=== PATIENT | male | born 1985 | race Caucasian/White ===

== ENCOUNTER 2020-08-15 12:10 | Day surgery (SDC) | payer OTHER, SELFPAY ==
--- NOTE | 2020-08-15 12:06 | HO.ANESPROP2 ---
HPI - Anesthesia Eval Consult details Narrative: 34 yo male patient here for upper endoscopy with balloon dilatation. PMF Past Medical History Medical History (Updated 08/15/20 @ 12:39 by Sara Nguyen) Esophageal stricture Family History Family history of problems with anesthesia: No Surgical History Surgical History (Updated 08/15/20 @ 12:38 by Sara Nguyen) Esophageal stricture H/O clavicle fracture History of Problems with Anesthesia: No Social History Social History Smoking Status: Never smoker Use of substances other than those prescribed or required for medical reasons: No Advance Directives: No Advance Directives Information Provided: Yes Recently lost weight without trying: No Meds Allergies Allergy/AdvReac Type Severity Reaction Status Date / Time No Known Allergies Allergy Unverified 04/07/20 16:44 Exam Exam Date and Time: August 15, 2020 1206 Height,Weight and Vital Signs: Ht 5' 8 Wt 95.45kg Vital Signs Temp Pulse Resp BP Pulse Ox 08/15/20 12:09 98.6 F 81 18 144/91 H 96 Airway Mallampati Class: II TM Dist: >3cm Neck ROM: Full Loose/Missing/Broken Teeth: Yes (top right) Heart: RRR Lungs: CTAB Assessment and Plan Assessment Anesthesia Assessment: Anesthesia Plan Discussed and Chart Reviewed Final Anesthetic Review NPO: Yes ASA Class: II Final Preanesthetic Review: No Changes in Pt Med Stat, Meds/Allgs Chart Reviewed, Consent Obtained/Reviewed and Anes Risks/Benef Reviewed Patient Risk: Low Procedure Risk: Low Assessment/Block/Sedation in SS: Assess/Block/Sedation-SS Anesthetic Plan Anesthetic Plan: MAC: Disposition: Standard PACU
[2020-08-15 12:09] VITALS: BP 144/91; PULSE 81; RESP 18; TEMP 37; O2SAT 96; BMI 32.0
[2020-08-15] MEDS: Lactated Ringers 1,000 ML 100 ML IVCONT (12:32)
[2020-08-15 13:00] VITALS: BP 112/71; PULSE 97; RESP 12; TEMP 36.4; O2SAT 96
--- NOTE | 2020-08-15 13:02 | PM.OP ---
Brief Operative Note Date of Service: 08/15/20 Pre-op diagnosis: Dysphagia Post-op diagnosis: other (Esophageal stricture, Hiatal hernia, Reflux esophagitis) Procedure: EGD with Balloon dilation from 18 to 19 to 20mm balloon, and biopsies Surgeon: Wilfrido García Anesthesia: MAC Estimated blood loss (mL): 3.0 Pathology: other (A. Esophagus at 32cm) Condition: stable Disposition: PACU
[2020-08-15 13:15] VITALS: BP 110/76; PULSE 78; RESP 18; O2SAT 98
--- NOTE | 2020-08-15 13:30 | OP_ITS ---
SURGEON: Wilfrido García MD INDICATIONS: The patient presents for evaluation of recurrent dysphagia. Full consent has been obtained from him for this, including risks of bleeding and perforation. PREOPERATIVE DIAGNOSIS: Dysphagia. POSTOPERATIVE DIAGNOSIS: PROCEDURE PERFORMED: Esophagogastroduodenoscopy with balloon dilation of distal esophageal stricture, and biopsies. ESTIMATED BLOOD LOSS: COMPLICATIONS: ANESTHESIA: Monitored anesthesia care. ASSISTANTS: SPECIMENS: POSTOPERATIVE DIAGNOSES: Dysphagia, distal esophageal stricture, hiatal hernia, reflux esophagitis. DESCRIPTION OF PROCEDURE: The patient was placed in the left lateral decubitus position. The Olympus video gastroscope was passed in the posterior oropharynx and upper esophagus under direct vision. The scope was passed slowly into the distal esophagus. The gastroesophageal junction appeared at between 34 and 35 cm. With insufflation of air, I did visualize what I felt was a fibrotic esophageal stricture. The distal several centimeters of the esophagus had some overlying punctate erosions, but no ulceration, Diaz's mucosa, nor mass. The scope entered into the stomach easily. There was a moderate-sized hiatal hernia. The hiatal hernia mucosa appeared normal. The scope was advanced to pylorus and duodenum cannulated to the descending portion. The duodenum including the bulb appeared normal without mass or ulceration. The scope was withdrawn back into the stomach. The gastric antrum and body appeared normal with good peristalsis. Scope was retroflexed visualizing the proximal stomach carefully, which appeared normal, without any sign of mass or ulceration. The scope was straightened and withdrawn back into the esophagus. Given the symptomatology and these findings, I did use a [employer] incremental balloon to dilate the gastroesophageal junction and fibrotic appearing stricture with an 18 mm to a 19 mm to a 20 mm balloon at the recommended pressures for between 30 and 60 seconds each. Post dilation, there did appear to be heme noted and some disruption of the stricture. I did obtain biopsies between 32 and 34 cm. Proximal to this, the esophageal mucosa appeared normal. The scope was withdrawn from the patient. He tolerated the procedure well and was returned to the recovery area in stable condition. IMPRESSION: 1. Distal fibrotic esophageal stricture. 2. Hiatal hernia. 3. Reflux esophagitis. PLAN: The results of the biopsies will be checked. He will continue omeprazole 40 mg b.i.d. He was advised to avoid all aspirin and NSAIDs. Depending upon his clinical course, may need further evaluation with esophageal motility studies, barium swallow with a barium tablet, and consideration for reflux surgery. He was advised not to use any aspirin and NSAIDs for at least 1 week. This has been discussed with his . He will be seen in 2 months for a followup visit, but was advised to call sooner if need be. MD YONATAN Seay/GUANAKITO / [phone]
--- NOTE | 2020-08-15 13:31 | HO.POSTANES ---
Post Anesthesia Evaluation Post Anesthesia Evaluation Vital Signs: Vital Signs Temp Pulse Resp BP Pulse Ox 08/15/20 13:15 97.5 F 78 18 110/76 98 08/15/20 13:00 97.5 F 97 12 112/71 96 08/15/20 12:09 98.6 F 81 18 144/91 H 96 Anesthesia: Monitored Mental Status: Awake Pain Control: Satisfactory Nausea/Vomiting: None Hydration: Adequate Anesthesia-Related Issues: No Anes. Related Issues
== END 2020-08-15 14:00 | disposition home or self-care (01) ==
PROVIDERS: Visit Provider Internal Medicine
PROC: (CPT 43249; principal; 2020-08-15 12:40)
DX: K22.2 Esophageal obstruction (principal); K20.0 Eosinophilic esophagitis; K44.9 Diaphragmatic hernia without obstruction or gangrene; J45.909 Unspecified asthma, uncomplicated; Z79.899 Other long term (current) drug therapy
CPT/HCPCS: 43249; 43239; 88305; C1726; J2405

== ENCOUNTER 2021-10-20 07:23 | Outpatient (REF) | payer OTHER, SELFPAY ==
--- NOTE | 2021-10-20 | ECG_ITS ---
Test Reason : PREOP Blood Pressure : / mmHG Vent. Rate : 069 BPM Atrial Rate : 069 BPM P-R Int : 166 ms QRS Dur : 088 ms QT Int : 374 ms P-R-T Axes : 046 005 018 degrees QTc Int : 400 ms Normal sinus rhythm Normal ECG When compared with ECG of 10-DEC-2003 04:19, Vent. rate has decreased BY 43 BPM Referred By: Hola Grossman Electronically Signed By:KIESRTEN ROBERTS
[2021-10-20 07:40] LABS: MANUAL DIFF FLAG NO
[2021-10-20 08:01] LABS: Basophils Percent Auto 0.5 % (0-2); Eosinophils Absolute Auto 0.4 X10*3/uL (0.0-0.4); Eosinophils Percent Auto 5.7 % (0-4); Hematocrit 41.2 % (42.0-52.0); Hemoglobin 14.9 g/dl (14.0-18.0); Imm Gran Abs Auto 0.01 X10*3/uL (0.00-0.03); Imm Gran Pct Auto 0.2 % (0.0-0.4); Lymphocytes Absolute Auto 2.3 X10*3/uL (1.2-4.9); Lymphocytes Percent Auto 34.2 % (20-40); Mean Corpuscular HGB Conc 36.2 g/dl (31.0-36.0); Mean Corpuscular Hemoglobin 31.7 pg (27.0-33.0); Mean Corpuscular Volume 87.7 fL (80.0-98.0); Mean Platelet Volume 9.9 fL (9.4-12.4); Monocytes Absolute Auto 0.6 X10*3/uL (0.1-1.2); Neutrophils Absolute Auto 3.4 x10*3/uL (2.0-8.3); Neutrophils Percent Auto 50.4 % (45-73); Platelet Count 194 X10*3/uL (160-400); Red Cell Distribution Width 12.6 % (11.0-16.0); White Blood Count 6.7 X10*3/uL (4.8-10.8)
[2021-10-20 08:04] LABS: INTERNATIONAL NORM RATIO 1.1 (0.9-1.1); Prothrombin Time 12.9 SEC (9.9-13.0)
[2021-10-20 08:07] LABS: Partial Thromboplastin Time 33.8 SEC (24.1-38.0)
[2021-10-20 08:22] LABS: Anion Gap 11 (12-20); Blood Urea Nitrogen 12 mg/dL (9-16); Carbon Dioxide 25 mmol/L (22-29); Chloride 108 mmol/L (96-108); Estimated Glomerular Filt Rate > 60; Glucose Random 89 mg/dL (60-115); Potassium 4.1 mmol/L (3.3-5.1); Sodium 140 mmol/L (135-145)
[2021-10-20 08:42] LABS: HIV AB/AG Nonreactive (Nonreactive); HIV Num 1 0.07 S/CO (0.00-0.99)
[2021-10-20 08:46] LABS: T4 Thyroxine 6.5 ug/dL (4.5-12.0); Thyroid Stimulating Hormone 1.76 uIU/mL (0.32-4.0)
[2021-10-21 07:31] LABS: Triiodothyronine T3 Free 3.5 pg/mL (2.3-4.2)
== END 2021-10-20 07:24 | disposition home or self-care (01) ==
LOC: HO.LAB 07:23
PROVIDERS: PCP Internal Medicine; Visit Provider Surgery Plastic and Reconstructive Surgery
DX: Z01.818 Encounter for other preprocedural examination (principal); Z11.4 Encounter for screening for human immunodeficiency virus [HIV]
CPT/HCPCS: 36415; 80048; 84436; 84443; 84481; 85025; 85610; 85730; 87389; 93005

== ENCOUNTER 2022-11-28 17:35 | Emergency (ER) | payer OTHER, SELFPAY ==
--- NOTE | ~2022-11-28 | XR_ITS ---
EXAMINATION: XR KNEE, RIGHT CLINICAL INFORMATION: Pain and numbness COMPARISON: September 23, 2019 TECHNIQUE: Four views of the right knee. FINDINGS: There is no evidence of acute fracture or dislocation of the right knee. Right knee joint spaces are maintained. No right knee effusion. There is again noted to be a mixed lucent and sclerotic lesion about the medial distal metaphyseal diaphyseal area of the right femur. This is again noted to have a small cortical bump with expansion but without evidence of periosteal reaction or bony destruction. This measures approximately 2.1 x 1.4 cm in size. This may represent an osteoma, and chondroma, or nonossifying fibroma. If patient has pain that improves with aspiration and possibly of osteoid osteoma could be considered. XR/XR knee RT 4V IMPRESSION: No significant right knee abnormality appreciated. Stable distal femoral rim calcified slightly expansile lesion. This has a benign appearance. If patient has pain related to this location which improves on aspirin then consideration of osteoid osteoma in differential diagnosis be included.
[2022-11-28 18:09] VITALS: BP 125/62; PULSE 68; RESP 16; TEMP 37.2; O2SAT 96; BMI 28.9
--- NOTE | 2022-11-28 22:44 | ED.EXTPRO ---
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 Pain is localized to the right knee with no radiation mostly on the lateral aspect of the knee more with standing and walking, patient is walking with a limp. Patient also regularly exercise with lifting weight and squatting exercising. No fever, no chills. Related Data Previous Rx's Medication Instructions Recorded ibuprofen 600 mg tablet 600 mg PO Q8H PRN pain #20 tabs 11/28/22 Allergies Allergy/AdvReac Type Severity Reaction Status Date / Time No Known Allergies Allergy Unverified 11/28/22 18:08 Review of Systems Review of Systems: All other systems are reviewed and are negative Constitutional: Reports as per HPI and Reports no additional constitutional complaints Eyes: Reports as per HPI and Reports no additional eye complaints Reports system reviewed and no additional complaints, except as documented Cardiovascular: Reports as per HPI and Reports no additional cardiovascular complaints Respiratory: Reports as per HPI and Reports no additional respiratory complaints Gastrointestinal: Reports as per HPI and Reports no additional gastrointestinal complaints Genitourinary: Reports no additional female genitourinary complaints Musculoskeletal: Reports no additional musculoskeletal complaints Skin/Breast: Reports system reviewed and no additional complaints, except as docu Psychiatric: Reports no additional psychiatric complaints Endocrine: Reports no additional endocrine complaints Hematologic/Lymphatic: Reports no additional hematologic/lymphatic complaints Allergic/Immunologic: Reports no additional allergic/immunologic complaints Reports system reviewed and no additional complaints, except as documented and Reports Abnormal speech present [facility] Past Medical History Medical History Esophageal stricture Surgical History Esophageal stricture H/O clavicle fracture Social History Social History Advance Directives: No Advance Directives Information Provided: No Physical Exam Vital Signs: Vital Signs: Last Vital Signs Temp 98.9 F 11/28/22 18:09 Pulse 68 11/28/22 18:09 Resp 16 11/28/22 18:09 BP 125/62 11/28/22 18:09 Pulse Ox 96 11/28/22 18:09 O2 Del Method Room Air 11/28/22 18:09 BMI result Body Mass Index 28.9 Vital signs have been reviewed as appeared to be correct. Blood pressure normal. Heart rate normal. Respiration rate normal. Temperature normal. Oxygen saturation normal. Appearance: Alert. Oriented X3. No acute distress. Head: Normal external exam. Normocephalic. Atraumatic. No Ponce signs noted. No raccoon eyes noted Eyes: PERRLA. EOMI. Conjunctiva and sclera normal. Eyelids normal. ENT: TM's Normal. Pharynx normal. Uvula midline. Moist mucous membranes. No trismus noted. No drooling noted. No muffled voice noted. Neck: Normal inspection. Neck supple. FROM. No adenopathy. Thyroid Normal. No meningeal signs. No neck mass noted. CVS: Normal heart rate and rhythm. Heart sound normal. No murmurs noted. Pulses normal throughout. Respiratory: No respiratory distress. Painless inspiration. Breath sounds normal. No wheezes/rales/rhonchi noted. Chest nontender. No accessory muscle usage noted or decreased air movement noted. Abdomen: Soft and nontender. Bowel sounds normal in all 4 quadrants. No distention noted. No organomegaly noted. No visible injury noted. Back: No CVA tenderness. Full range of motion noted. Skin: Skin warm and dry. Normal skin color. Normal skin turgor. No rashes/lesions/lacerations noted. Extremities: Right knee: No deformity, mild tenderness over lateral aspect of the right knee, able to ambulate in the emergency department and bear weight on the right knee. Neuro: Oriented X 3. Cranial nerve exam: II-XII are grossly intact No motor deficit. No sensory deficit. Reflexes normal. Course Course Course Narrative: Right knee sprain: Patient was instructed to avoid standing for long hours, use knee immobilizer, follow up with Orthopedic, use NSAIDs for pain. Medical Decision Making Differential Diagnosis Differential Diagnoses: The differential diagnosis associated with the presentation includes (Knee sprain, fracture, infection.) Independent Interpretation I performed an independent interpretation of an: Plain X-Ray (Right knee:No significant right knee abnormality appreciated. Stable distal femoral rim calcified slightly expansile lesion. This has a benign appearance. If patient has pain related to this location which improves on aspirin then consideration of osteoid osteoma in differential diagnosis be inclu) Radiology Impression Discussion of test interpretation with radiology: I have reviewed the radiologist's reading. Discharge Plan Discharge Clinical Impression: Right knee sprain Patient Disposition: Home, Self-Care Instructions: Knee Sprain (ED) Prescriptions: New ibuprofen 600 mg tablet 600 mg PO Q8H PRN (Reason: pain) Qty: 20 0RF Referrals: Joey Thibodeaux MD [Primary Care Provider] - Paulino Azul MD [Physician] -
== END 2022-11-28 23:03 | disposition home or self-care (01) ==
PROVIDERS: Emergency Provider Emergency Medicine; PCP Internal Medicine
DX: S83.91XA Sprain of unspecified site of right knee, initial encounter (principal); X50.1XXA Overexertion from prolonged static or awkward postures, initial encounter; Y93.89 Activity, other specified; Y92.9 Unspecified place or not applicable; Y99.9 Unspecified external cause status
CPT/HCPCS: 73564; 99282; 99283

== ENCOUNTER 2023-07-29 15:57 | Outpatient (REF) | payer OTHER, SELFPAY ==
[2023-07-29 16:14] LABS: MANUAL DIFF FLAG NO
[2023-07-29 17:04] LABS: Basophils Percent Auto 0.4 % (0-2); Eosinophils Absolute Auto 0.3 X10*3/uL (0.0-0.4); Eosinophils Percent Auto 3.8 % (0-4); Hematocrit 45.3 % (42.0-52.0); Hemoglobin 15.5 g/dl (14.0-18.0); Imm Gran Abs Auto 0.03 X10*3/uL (0.00-0.03); Imm Gran Pct Auto 0.4 % (0.0-0.4); Lymphocytes Absolute Auto 2.1 X10*3/uL (1.2-4.9); Lymphocytes Percent Auto 28.6 % (20-40); Mean Corpuscular HGB Conc 34.2 g/dl (31.0-36.0); Mean Corpuscular Hemoglobin 29.8 pg (27.0-33.0); Mean Corpuscular Volume 87.1 fL (80.0-98.0); Mean Platelet Volume 9.8 fL (9.4-12.4); Monocytes Absolute Auto 0.5 X10*3/uL (0.1-1.2); Neutrophils Absolute Auto 4.4 x10*3/uL (2.0-8.3); Neutrophils Percent Auto 59.8 % (45-73); Platelet Count 231 X10*3/uL (160-400); Red Cell Distribution Width 12.5 % (11.0-16.0); White Blood Count 7.4 X10*3/uL (4.8-10.8)
[2023-07-29 17:38] LABS: Appearance Urine Clear; Color Urine Yellow; Glucose Urine UA Negative (Negative); Leukocyte Esterase Urine Negative (Negative); Nitrite Urine Negative (Negative); Urine Blood Negative (Negative); Urine Ketones Negative (Negative); Urine Protein Negative (Neg-Trace)
[2023-07-29 17:49] LABS: Alanine Aminotransferase 27 U/L (0-40); Albumin Level 4.5 g/dL (3.5-5.0); Alkaline Phosphatase 65 U/L (39-117); Anion Gap 13 (12-20); Aspartate Amino Transferase 20 U/L (5-37); Bilirubin Total 0.5 mg/dL (0.0-1.0); Blood Urea Nitrogen 11 mg/dL (9-16); Calcium 9.7 mg/dL (8.4-10.2); Carbon Dioxide 26 mmol/L (22-29); Chloride 104 mmol/L (96-108); Estimated Glomerular Filt Rate > 60; Glucose Random 81 mg/dL (60-115); Sodium 139 mmol/L (135-145); Total Protein 7.7 g/dL (6.5-8.0)
[2023-07-29 18:05] LABS: Free T4 (Free Thyroxine) 1.08 ng/dL (0.71-1.85); Thyroid Stimulating Hormone 1.09 uIU/mL (0.32-4.0)
[2023-08-04 14:59] LABS: Testosterone, Free 73.5 pg/mL (35.0-155.0); Testosterone, Total 294 ng/dL (250-1100)
== END 2023-07-29 15:58 | disposition home or self-care (01) ==
LOC: HO.LAB 15:57
PROVIDERS: PCP Internal Medicine; Visit Provider Internal Medicine
DX: R63.4 Abnormal weight loss (principal); I10 Essential (primary) hypertension; R35.1 Nocturia; E29.1 Testicular hypofunction
CPT/HCPCS: 36415; 80053; 81003; 84402; 84403; 84439; 84443; 85025; 87086

== ENCOUNTER 2023-09-03 08:25 | Outpatient (REF) | payer OTHER, SELFPAY ==
--- NOTE | ~2023-09-03 | XR_ITS ---
EXAMINATION: XR KNEE AP STANDING, RIGHT KNEE SUNRISE VIEW CLINICAL INFORMATION: Pain and unspecified knee. COMPARISON: 11/28/2022 right knee radiographs. TECHNIQUE: AP bilateral standing view of the bilateral knees as well as a sunrise view of the right knee were obtained. FINDINGS: Left Knee: Mild narrowing of the medial and lateral compartments with minimal marginal osteophytes. Right Knee: Mild narrowing of the medial and lateral compartments with minimal marginal osteophytes. 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
--- NOTE | ~2023-09-03 | XR_ITS ---
EXAMINATION: XR KNEE AP STANDING, RIGHT KNEE SUNRISE VIEW CLINICAL INFORMATION: Pain and unspecified knee. COMPARISON: 11/28/2022 right knee radiographs. TECHNIQUE: AP bilateral standing view of the bilateral knees as well as a sunrise view of the right knee were obtained. FINDINGS: Left Knee: Mild narrowing of the medial and lateral compartments with minimal marginal osteophytes. Right Knee: Mild narrowing of the medial and lateral compartments with minimal marginal osteophytes. 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
== END 2023-09-03 08:26 | disposition home or self-care (01) ==
LOC: HO.HOSX 08:25
PROVIDERS: Visit Provider Physician Assistant
DX: M23.91 Unspecified internal derangement of right knee (principal)
CPT/HCPCS: 73560; 73565; 99202

== ENCOUNTER 2023-09-03 10:39 | Outpatient (AMB) | payer OTHER, SELFPAY ==
[2023-09-03 10:46] VITALS: BMI 28.9
--- NOTE | 2023-09-03 10:46 | MHC.OFFVIS ---
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 Patient reports ongoing pain since November. He states that his pain is more focused on the knee. Pain is worse when driving and sitting. Hx of NSAIDs/Tylenol for 3 + months with no relief. Hx of tried/failed 3 + months of using a brace. 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 The patient presented to the ED on 11/28/2022 status post right knee pain for about 2 weeks due to long periods of standing. At that time he was instructed to avoid standing for long periods of time and to use the knee immobilizer. He was also referred to Orthopedics. While in the office today the patient reports his pain has been present since 11/2022. He reports his pain is located in the knee. He states it increases with driving and sitting. He confirms the use of NSAIDs/Tylenol for over 3 months with no relief. He also tried and failed the use of a brace for over 3 months. Patient works as a jarrett, per ED note. [facility] Medical History Esophageal stricture Surgical History Esophageal stricture H/O clavicle fracture Social History (Updated 09/03/23 @ 10:54 by Ginger Zayas) Alcohol intake: never Patient Tobacco Use Status: Never used Tobacco Review of Systems Const All systems reviewed & are unremarkable except as noted in HPI and below Physical Exam Vital Signs: BMI result Body Mass Index 28.9 Const General: cooperative and no acute distress Orientation/consciousness: patient oriented x3 Resp Effort & Inspection: normal respiratory effort and able to speak in complete sentences Cardio Peripheral pulses: Peripheral pulses 2+ throughout Skin General skin exam: no rashes or lesions noted Neuro General: patient oriented x3 Extrem Other: Right knee: Normal to inspection. No ecchymosis, erythema, or joint effusion. No tenderness to palpation to the medial or lateral joint lines. Tenderness to palpation along the lateral boarder of the patella. Full knee extension and flexion. Negative Jefferson's. Negative anterior drawer. NVI. Assessment & Plan Assessment & Plan (1) Internal derangement of right knee: Code(s): M23.91 - Unspecified internal derangement of right knee Plan Mr. Leon is a 37-year-old male who presents in the office today, as a new patient, for an evaluation of right knee pain. The patient presented to the ED on 11/28/2022 status post right knee pain for about 2 weeks due to long periods of standing. At that time he was instructed to avoid standing for long periods of time and to use the knee immobilizer. He was also referred to Orthopedics. While in the office today the patient reports his pain has been present since 11/2022. He reports his pain is located in the knee. He states it increases with driving and sitting. He confirms the use of NSAIDs/Tylenol for over 3 months with no relief. He also tried and failed the use of a brace for over 3 months. Patient works as a jarrett, per ED note. The patient will be referred for an MRI to further evaluate the integrity of the right knee. Follow up will be after the MRI is obtained, or sooner if needed. X-rays of the right knee which were obtained while in the office today and were reviewed by me, Sole Culver PA-C, in comparison to the x-rays obtained in 11/2022 the patient continues to have a calcified lesion at the distal femur, stable in appearance without any periosteal reaction or corina destruction. X-rays of the right knee, obtained on 11/28/2022, revealed: There is no evidence of acute fracture or dislocation of the right knee. Right knee joint spaces are maintained. No right knee effusion. There is again noted to be a mixed lucent and sclerotic lesion about the medial distal metaphyseal diaphyseal area of the right femur. This is again noted to have a small cortical bump with expansion but without evidence of periosteal reaction or bony destruction. This measures approximately 2.1 x 1.4 cm in size. This may represent an osteoma, and chondroma, or nonossifying fibroma. If patient has pain that improves with aspiration and possibly of osteoid osteoma could be considered. Orders: Orders XR knee RT 1V Today M25.569 - Pain in unspecified knee XR knee standing BI Today M25.569 - Pain in unspecified knee MR knee RT wo con Today M23.91 - Unspecified internal derangement of right knee Patient Instructions: Scribed by Jaimie Strickland, medical research assistant, for Sole Culver PA-C on 09/03/2023 at 10:41 am, EST. Coding Level of Care Code New Pt Level 4 (30175) Diagnoses Internal derangement of right knee M23.91
== END 2023-09-03 11:06 | disposition home or self-care (01) ==
PROVIDERS: PCP Internal Medicine; Visit Provider Physician Assistant
DX: M23.91 Unspecified internal derangement of right knee (principal)
CPT/HCPCS: 99203

== ENCOUNTER 2023-09-24 17:10 | Outpatient (REF) | payer OTHER, SELFPAY ==
--- NOTE | ~2023-09-24 | MR_ITS ---
EXAMINATION: MR KNEE WITHOUT CONTRAST, RIGHT CLINICAL INFORMATION: Right knee pain and numbness. Internal derangement. COMPARISON: Right knee radiographs dated 09/03/2023 and 11/28/2022. TECHNIQUE: MRI of the knee without contrast was performed using routine sequences on a high-field scanner. FINDINGS: MENISCI: Medial Meniscus: Slightly increased T2 signal within the periphery of the posteromedial corner, likely representing normal variation/vascularity. No meniscal tear. Lateral Meniscus: Intact LIGAMENTS: Cruciate: Interposed between the anterior and posterior cruciate ligaments is a lobulated cyst measuring up to 1.2 cm in greatest dimension with minimal adjacent edema, consistent with a cruciate cyst. No evidence of acute anterior or posterior cruciate ligament injury. Collateral: Intact EXTENSOR MECHANISM: No patella dakotah. Borderline elevated TT TG distance measuring 1.5 cm. Proximal patellar tendinosis with lateral undersurface partial tearing measuring 1.4 x 0.6 cm (CC x ML). No full-thickness transverse tendon tear or tendon retraction. Adjacent edema within the superolateral aspect of Hoffa's fat pad, which may be reactive to the patellar pathology or be seen in the setting of patellar tendon lateral femoral condyle friction syndrome. ARTICULAR CARTILAGE/BONE: Patellofemoral Compartment: Intact articular cartilage. Medial Compartment: Intact articular cartilage. Lateral Compartment: Intact articular cartilage. JOINT FLUID AND BURSAE: Small joint effusion and trace Cisse's cyst. MR/MR knee RT wo con IMPRESSION: 1. Proximal patellar tendinosis with lateral undersurface partial tearing measuring 1.4 x 0.6 cm (CC x ML). No full-thickness transverse tendon tear or tendon retraction. Adjacent edema within the superolateral aspect of Hoffa's fat pad, which may be reactive to the patellar pathology or be seen in the setting of patellar tendon lateral femoral condyle friction syndrome. Borderline elevated TT TG distance measuring 1.5 cm. No patella d[place]otah. 2. Small joint effusion and trace Cisse's cyst. 3. No acute meniscal or ligamentous injury.
== END 2023-09-24 17:11 | disposition home or self-care (01) ==
LOC: HO.MRI 17:10
PROVIDERS: PCP Internal Medicine; Visit Provider Physician Assistant
DX: M23.91 Unspecified internal derangement of right knee (principal)
CPT/HCPCS: 73721

== ENCOUNTER 2023-10-22 10:10 | Outpatient (AMB) | payer OTHER, SELFPAY ==
--- NOTE | 2023-10-22 10:15 | MHC.OFFVIS ---
Intake Intake Visit Reasons: OV - right knee MRI review Intake Note: Cori is a 38 year old male whop resents today for a MRI review of his right knee. He states that he is still having the same pain. He reports on 09/29/23 he noticed that he was limping and with a lot of pain. Allergies No Known Allergies Allergy (Verified 10/22/23 10:20) HPI OV - right knee MRI review HPI Details 38-year-old male, who is Nepalese speaking, presents in the office today for a follow up of right knee pain and review of his MRI. While in the office today the patient reports he is still having the same pain. He states on 09/29/2023 he noticed he was limping with severe pain. Patient works as a jarrett, per ED note. FORMERLY [facility] Medical History Esophageal stricture Surgical History Esophageal stricture H/O clavicle fracture Social History (Updated 10/22/23 @ 10:20 by Ginger Zayas) Alcohol intake: never Patient Tobacco Use Status: Never used Tobacco Current occupational status: unemployed Review of Systems Const All systems reviewed & are unremarkable except as noted in HPI and below Physical Exam Const General: cooperative, healthy appearing and no acute distress Resp Effort & Inspection: normal respiratory effort and able to speak in complete sentences Cardio Rate: regular rate Peripheral pulses: Peripheral pulses 2+ throughout GI Palpation (GI): Soft to palpation Skin Lesions: no lesions Rashes: no rashes Extrem Other: Right knee: Normal to inspection. No ecchymosis, erythema, or joint effusion. No tenderness to palpation to the medial or lateral joint lines. Tenderness to palpation along the lateral boarder of the patella. Full knee extension and flexion. Negative Jefferson's. Negative anterior drawer. NVI. Assessment & Plan Assessment & Plan (1) Patellar tendonitis of right knee: Code(s): M76.51 - Patellar tendinitis, right knee (2) Iliotibial band syndrome affecting right lower leg: Code(s): M76.31 - Iliotibial band syndrome, right leg Plan Mr. Leon is a 38-year-old male, who is Nepalese speaking, presents in the office today for a follow up of right knee pain and review of his MRI. While in the office today the patient reports he is still having the same pain. He states on 09/29/2023 he noticed he was limping with severe pain. Patient works as a jarrett, per ED note. I have recommended for the patient to attend Physical Therapy, which he is in agreement with. I have educated him that he is able to take Ibuprofen 800 mg TID PRN for pain. This is to be taken with food. Follow up will be PRN, or sooner if needed. MRI of the right knee, obtained on 09/24/2023, revealed: 1. Proximal patellar tendinosis with lateral undersurface partial tearing measuring 1.4 x 0.6 cm (CC x ML). No full-thickness transverse tendon tear or tendon retraction. Adjacent edema within the superolateral aspect of Hoffa's fat pad, which may be reactive to the patellar pathology or be seen in the setting of patellar tendon lateral femoral condyle friction syndrome. Borderline elevated TT TG distance measuring 1.5 cm. No patella dakotah. 2. Small joint effusion and trace Cisse's cyst. 3. No acute meniscal or ligamentous injury. Patient Instructions: Scribed by Jaimie Strickland medical administrative, for Sole Culver PA-C on 10/22/2023 at 10:16 am, EST. Coding Level of Care Code Est Pt Level 4 (41483) Diagnoses Patellar tendonitis of right knee M76.51 Iliotibial band syndrome affecting right lower leg M76.31
== END 2023-10-22 11:05 | disposition home or self-care (01) ==
PROVIDERS: PCP Internal Medicine; Visit Provider Physician Assistant
DX: M76.51 Patellar tendinitis, right knee (principal); M76.31 Iliotibial band syndrome, right leg
CPT/HCPCS: 99214

== ENCOUNTER → 2023-10-22 10:10 | Outpatient (BNVA) | payer OTHER, SELFPAY | PROVIDERS: PCP Internal Medicine; Visit Provider Physician Assistant | DX: M76.51 Patellar tendinitis, right knee (principal); M76.31 Iliotibial band syndrome, right leg | CPT/HCPCS: 99212 ==

== ENCOUNTER 2025-04-30 08:47 | Emergency (ER) | payer SELFPAY ==
--- NOTE | ~2025-04-30 | US_ITS ---
EXAMINATION: US RETROPERITONEAL LIMITED (RENAL ONLY) CLINICAL INFORMATION: Left flank pain COMPARISON: None available. TECHNIQUE: Renal ultrasound FINDINGS: RIGHT KIDNEY: 10.7 x 5.4 x 6 cm (SAG x AP x TRV). The kidney is normal in size, contour, and echogenicity. Renal cortical thickness is normal. No calculi or focal parenchymal lesions. No hydronephrosis. LEFT KIDNEY: 12 x 6.3 x 5.2 cm (SAG x AP x TRV). The kidney is normal in size, contour, and echogenicity. Renal cortical thickness is normal. No calculi or focal parenchymal lesions. Mild pelvic fullness. US/US renal BI IMPRESSION: Mild fullness of the left renal pelvis. No calculi are evident by ultrasound.. Electronically signed by: Kwabena May MD 04/30/2025 12:04 PM EDT
--- NOTE | ~2025-04-30 | XR_ITS ---
EXAMINATION: XR CHEST 2 VIEWS HISTORY: ?PNA on CT COMPARISON: Correlation is made with the images of the lung bases from an abdominal CT scan performed earlier in the day. FINDINGS: PA and lateral views of the chest are submitted. There is airspace opacity in the right lower lobe consistent with pneumonia as noted on CT. The left lung is clear. There is no pleural effusion, pneumothorax, or pulmonary vascular congestion. The heart is normal in size. The bones are intact. XR/XR chest 2V IMPRESSION: Right lower lobe pneumonia. Follow-up is recommended to document resolution. Electronically signed by: Wilfrido Alfredo MD 04/30/2025 01:38 PM EDT
--- NOTE | ~2025-04-30 | CT_ITS ---
EXAMINATION: CT ABDOMEN PELVIS WITHOUT IV CONTRAST HISTORY: L flank pain. micro hematuria. ?stone COMPARISON: Previous renal ultrasound from earlier the same day TECHNIQUE: CT scan of the abdomen and pelvis was performed without contrast using standard departmental protocol. Coronal and sagittal reformatted images were generated and reviewed. This CT exam was performed with one or more of the following dose reduction techniques: automated exposure control, adjustment of the mA and/or kV according to patient size, use of iterative reconstruction technique. DLP: 606 mGy-cm FINDINGS: LOWER CHEST: Patchy airspace disease in the right lower lobe probably representing pneumonia. CARDIOVASCULATURE: The heart is normal in size. There is no pericardial effusion. LIVER: The liver is normal in size and contour. The liver has an unremarkable unenhanced appearance. GALLBLADDER / BILE DUCTS: The gallbladder is unremarkable. There is no intra or extrahepatic biliary ductal dilatation. SPLEEN: The spleen is normal in size and has an unremarkable unenhanced appearance. PANCREAS: The pancreas has an unremarkable unenhanced appearance. ADRENAL GLANDS: Unremarkable. KIDNEYS/RETROPERITONEUM: Mild left hydronephrosis and ureteral dilatation from a 3 mm left UVJ stone. Small amount of left perinephric fluid probably representing backflow of urine. Differential would include infection. No renal stone seen. Normal right kidney. LYMPH NODES: No enlarged lymph nodes. VASCULATURE: The abdominal aorta is normal in caliber. MESENTERY/PERITONEUM: No free fluid. No masses. There is no free intraperitoneal gas. STOMACH: Normal SMALL BOWEL: The small bowel is normal in caliber. COLON: The colon is unremarkable. APPENDIX: Normal. URINARY BLADDER/PELVIC ORGANS: Re-millimeter left UVJ stone. Bladder otherwise unremarkable. The prostate gland does not appear enlarged. BONES / SOFT TISSUES: Small umbilical hernia containing fat. Several small sclerotic densities in the pelvis and bilateral femurs, largest measuring 7 mm in the left iliac bone. These are nonspecific but probably represent bone islands. CT/CT abdomen pelvis wo IV con IMPRESSION: Mild left hydronephrosis and ureteral dilatation from a 3 mm left UVJ stone. Small amount of left perinephric fluid probably representing backflow of urine. Differential would include infection. Clinical correlation recommended. Patchy airspace disease in the right lower lobe probably representing pneumonia. Electronically signed by: Lazara Hutchinson MD 04/30/2025 01:09 PM EDT RP
[2025-04-30 09:04] VITALS: BMI 26.5
[2025-04-30 09:35] VITALS: PULSE 80; RESP 18; TEMP 36.6; O2SAT 99
[2025-04-30 09:41] LABS: MANUAL DIFF FLAG NO
[2025-04-30 09:43] LABS: Hematocrit 43.0 % (42.0-52.0); Hemoglobin 15.0 g/dl (14.0-18.0); Imm Gran Abs Auto 0.04 X10*3/uL (0.00-0.03); Imm Gran Pct Auto 0.4 % (0.0-0.4); Lymphocytes Absolute Auto 1.4 X10*3/uL (1.2-4.9); Mean Corpuscular HGB Conc 34.9 g/dl (31.0-36.0); Mean Corpuscular Hemoglobin 29.9 pg (27.0-33.0); Mean Corpuscular Volume 85.8 fL (80.0-98.0); NRBC Abs Auto 0.000 X10*3/uL (0.0-0.012); NRBC Pct Auto 0.0 /100WBC (0.0-0.2); Platelet Count 239 X10*3/uL (160-400); Red Blood Count 5.01 X10*6/uL (4.60-5.80); White Blood Count 8.9 X10*3/uL (4.8-10.8)
--- OUTSIDE RECORDS SUMMARY | 2025-04-30 09:46 | XMS_ITS | Patient Health Record ---
Author Organization [facility] Address [address] [place] [address] Care Team Providers Care Supplier Quality Name Role Phone Morelia (RETIRED) Joey DIOP Primary Care Provide r Wilfrido Trotter [phone] Reason For Referral No Information Medications Medication SIG (Take, Route, Fr equency, Duration) Notes Start Date End Date Status Omeprazole 20 MG 2 capsules Orally BI D; Duration: 30 day(s) Active Advil PRN Active Immunizations Vaccine Route Administration Date Status Comme nts Influenza Unknown 02/10/2019 Refused Influenza Unknown 03/31/2019 Refused Influenza Unknown 08/10/2020 Refused Social History Tobacco Use: Social History Observation Description Date Details (start date - stop date) Never Smoker NA - NA Tobacco Use/Smoking Question Answer Notes Patient is a nonsmoker Alcohol Screen Question Answer Notes Did you have a drink containing alcohol in the p ast year? No Points 0 Interpretation Negative Section Notes: Nonsmoker, no significant al cohol Nonsmoker, no significant al cohol Nonsmoker, no significant al cohol Nonsmoker, no significant al cohol Nonsmoker, no significant al cohol Nonsmoker, no significant al cohol Problems Problem Type SNOMED Code ICD Code Onset Dates Problem Status W/U Status Risk Notes Problem Stricture of esophagus (54635574) Esophageal obstruction (K22.2) Active confirmed Problem Esophageal stricture (45795804) Esophageal stricture (K22.2) Active confirmed Problem Hiatal hernia (78992701) Hiatal hernia (K44.9) Active confirmed Problem Barium swallow abnormal (908279659) Abnormal barium swallow (R93.3) Active confirmed Problem Esophageal dysphagia (94761675) Esophageal dysphagia (R13.10) Active confirmed Problem Benign esophageal stricture (781277797) Benign esophageal stricture (K22.2) Active confirmed Plan Of Treatment Pending Test Test Name Order Date XR BARIUM SWALLOW-ESOPHAGUS 03/13/2018 XR BARIUM SWALLOW-ESOPHAGUS 01/13/2019 XR GI SERIES 03/13/2018 Future Test Test Name Order Date UPPER GI ENDOSCOPY BALLOOON DILATION OF ESOPH 11/27/2017 UPPER GI ENDOSCOPY BALLOOON DILATION OF ESOPH 04/19/2018 UPPER GI ENDOSCOPY BALLOOON DILATION OF ESOPH 02/10/2019 UPPER GI ENDOSCOPY BALLOOON DILATION OF ESOPH 08/10/2020 Insurance Providers Payer Name Payer Address Payer Phone Subscriber Number Group Number Insured Name Patient Relationship to Insured Coverage Start Date Coverage End Date [facility] [address] [place] [phone] [id number] FIDEL POWELL Self - patient is the insured Medical (General) History Medical History History ICD Code Asthma Denies UT,DM,CVA,renal disease Esophageal stricture--he und erwent an upper endoscopy in November of 2017 with the finding of a fibrotic esophageal stricture and a small to moderate-sized hiatal hernia--stricture was dilated with balloons up to 18 mm with good effect--proximal esophageal biopsies were negative for eosinophilic esophagitis; EGD 04/2018 with an esophageal stricture dilated with an 18 to 20mm balloon, and a small to moderate-sized HH UGI series in June 2017 raised the question of a small paraesophageal hernia EGD in January 2019 with dilati on of a mild fibrotic stricture just above the EG junction--this was dilated with a 20 mm balloon with good results--he does have a small to moderate-sized hiatal hernia Surgical History Surgery Date(Month/Year) Left clavicle surgery 2006
--- NOTE | 2025-04-30 09:52 | ED_ITS ---
HPI - Back Pain/Injury General Chief Complaint: Back Pain/Injury Stated Complaint: sharp pain lower back Time Seen by Provider: 04/30/25 08:59 Source: patient, RN notes reviewed and old records reviewed Mode of arrival: ambulatory History of Present Illness ED Provider: Muriel Oakes PA-C HPI Narrative: 39-year-old male no significant past medical history presenting to the ED complaining of stabbing left flank pain x last night. States pain worse with sitting or lying down, better with ambulating. Reports recent asthma exacerbation with excessive coughing which may have exacerbated symptoms. Used heat pack without relief. Denies injury, trauma, fall, heavy lifting, nausea/vomiting, dysuria/hematuria, history of clots Related Data Previous Rx's ?Medication ?Instructions ?Recorded ibuprofen 600 mg tablet 600 mg PO Q8H PRN pain #20 t abs 11/28/22 acetaminophen 500 mg tablet 500 mg PO Q6H PRN fever or pain 04/30/25 (Tylenol Extra Strength) #14 tabs amoxicillin 500 mg tablet 1,000 mg (2 x 500 mg) PO TID 7 04/30/25 days #42 tabs azithromycin 250 mg tablet See Rx Instructions PO .COM PLEX #6 04/30/25 tabs morphine 15 mg immediate release 15 mg PO Q6H PRN pain (scale score 04/30/25 tablet 7-10) 3 days #9 tabs naproxen 500 mg tablet 500 mg PO BID PRN pain 10 da ys #20 04/30/25 tabs tamsulosin 0.4 mg capsule (Flomax) 0.4 mg PO DAILY #14 caps 04/30/25 Allergies Allergy/AdvReac Type Severity Reaction Status Date / Time acetaminophen (From Percocet) AdvReac Unresponsiv Verified 04/30/25 09:10 e oxycodone (From Percocet) AdvReac Unresponsiv Verified 04/30/25 09:10 e Review of Systems 2 Review of Systems: Yes all other systems are reviewed and are negative Constitutional: Constitutional: Reports as per [facility] Past Medical History Attestation statement: The following information was validated with the patient. Source: old records reviewed Medical History Esophageal stricture Surgical History H/O clavicle fracture Esophageal stricture Social History Social History Alcohol intake: never Patient Tobacco Use Status: Never used Tobacco Advance Directives: No Advance Directives Information Provided: Yes Current occupational status: unemployed Physical Exam 2 Vital Signs: Vital Signs: Last Vital Signs Temp 98.0 F 04/30/25 13:52 Pulse 74 04/30/25 13:52 Resp 14 04/30/25 13:52 BP 125/68 04/30/25 13:52 Pulse Ox 96 04/30/25 13:52 O2 Del Method Room Air 04/30/25 13:52 BMI result Body Mass Index 26.5 Const: General: cooperative, healthy appearing and no acute distress O rientation/consciousness: patient oriented x3 Limitations: no limitations HEENT: Head: Yes normal to inspection and Yes atraumatic Ears: hearing grossly normal bilaterally General nose exam: Normal external nose present Face and sinus: Yes normal facial exam Eyes: General: appearance normal, both eyes and all related structures EOM: EOMs intact bilaterally Neck: Neck: Yes normal visual inspection and Yes no meningeal signs Chest: Chest palpation & inspection: normal inspection of the chest Resp: Effort & Inspection: normal respiratory effort and no respiratory distress Auscultation: clear to auscultation bilaterally and no wheezes Cardio: Rate: regular rate Heart sounds: S1 normal heart sound present and S2 normal heart sound present GI: Inspection: Yes normal to inspection Palpation (GI): Soft to palpation, nontender, no guarding and not rigid : General: Yes CVA tenderness (left) Back/Spine/Pelvis: Other: No midline cervical/thoracic/lumbar spinous tenderness/step-off or deformity. + left mid back reproducible tenderness. No rash/erythema or ecchymosis Back: CVA tenderness (left) Skin: Rashes: no rashes Wounds: no wounds Neuro: Other: Strength intact throughout. No saddle anesthesia. Sensation intact to light touch. Neurovascular intact distally General: patient oriented x3, gait normal, tone normal and no meningeal signs Cranial nerves: Yes CN's II-XII intact bilaterally Gait exam (Neuro): Normal gait present Extrem: General: Yes normal to inspection Course Course Course Narrative: -1100--no leukocytosis. Labs otherwise reassuring. UA with small blood and RBCs > will obtain renal ultrasound. Additional pain medication ordered US renal BI IMPRESSION: Mild fullness of the left renal pelvis. No calculi are evident by ultrasound.. > patient is still in a lot of pain. Will obtain CT for further eval 1323--CT abdomen pelvis wo IV con IMPRESSION: Mild left hydronephrosis and ureteral dilatation from a 3 mm left UVJ stone. Small amount of left perinephric fluid probably representing backflow of urine. Differential would include infection. Clinical correlation recommended. Patchy airspace disease in the right lower lobe probably representing pneumonia. > will obtain chest x-ray for further eval. Results discussed. Will p.o. trial. 1406--XR chest 2V IMPRESSION: Right lower lobe pneumonia. Follow-up is recommended to document resolution. > patient tolerating p.o. in the ED without difficulty. Reports symptomatic improvement. Feels comfortable for discharge home at this time with urology follow-up. Patient has been symptomatic with asthma x2 weeks will treat for pneumonia. Results discussed with patient including worrisome signs and symptoms and strict return precautions, and when to return to the emergency department. They verbalized understanding and feel safe for discharge at this time. Medications Administered Discontinued Medications Generic Name Dose Route Start Last Admin Trade Name Freq PRN Reason Stop Dose Admin Cyclobenzaprine HCl 10 mg 04/30/25 09:12 04/30/25 09:23 Cyclobenzaprine Hcl 10 Mg Tablet PO 04/30/25 09:13 10 mg ONCE ONE Administration Sodium Chloride 1,000 mls @ 999 mls/hr 04/30/25 12:30 04/30/25 13:10 Ns IV 04/30/25 13:30 999 mls/hr .Q1H1M PETER Administration Ketorolac Tromethamine 15 mg 04/30/25 09:12 04/30/25 09:33 Ketorolac Tromethamine 15 Mg/Ml Vial IVPUSH 04/30/25 09:13 15 mg ONCE ONE Administration Ketorolac Tromethamine 15 mg 04/30/25 12:28 04/30/25 13:11 Ketorolac Tromethamine 15 Mg/Ml Vial IVPUSH 04/30/25 12:29 15 mg ONCE ONE Administration Morphine Sulfate 2 mg 04/30/25 10:21 04/30/25 11:06 Morphine Sulfate 2 Mg/Ml Cartridge IVPUSH 04/30/25 10:22 2 mg ONCE ONE Administration Protocol Morphine Sulfate 4 mg 04/30/25 12:28 04/30/25 13:11 Morphine Sulfate 4 Mg/Ml Cartridge IVPUSH 04/30/25 12:29 4 mg ONCE ONE Administration Protocol Tamsulosin HCl 0.4 mg 04/30/25 13:25 04/30/25 13:46 Tamsulosin Hcl 0.4 Mg Capsule PO 04/30/25 13:26 0.4 mg ONCE ONE Administration Medical Decision Making Medical Decision Making [facility] Narrative: 39-year-old male no significant past medical history presenting to the ED complaining of stabbing left flank pain x last night. States pain worse with sitting or lying down, better with ambulating. On exam vital signs stable, NAD, appears uncomfortable, ambulating around room. + left CVAT. Pain elicited with sitting/lying. No focal neuro deficits. Abdomen is soft and nontender. Concern for muscle spasm vs renal colic. Lower suspicion for acute UTI/pyelo, fracture, cholecystitis/lithiasis/pancreatitis. Unlikely cauda equina/cord compression or epidural abscess Plan: Labs, UA, pain control, re-evaluate Please refer to course for remaining clinical decision making, interpretation of labs/imaging results, and discussions with consultants and/or family members. Differential Diagnosis Differential Diagnoses: The differential diagnosis associated with the presentation includes As above Admission/Observation Consideration of admission/observation: Escalation of care including admission/observation considered Lab Data [facility] Lab Attestation statement: I reviewed the patient's lab results. 04/30/25 09:32 04/30/25 09:32 Labs: Lab Results 04/30/25 Range/Units 09:32 WBC 8.9 (4.8-10.8) X10*3/uL RBC 5.01 (4.60-5.80) X10*6/uL Hgb 15.0 (14.0-18.0) g/dl Hct 43.0 (42.0-52.0) % MCV 85.8 (80.0-98.0) fL MCH 29.9 (27.0-33.0) pg MCHC 34.9 (31.0-36.0) g/dl RDW 12.2 (11.0-16.0) % Plt Count 239 (160-400) X10*3/uL MPV 9.5 (9.4-12.4) fL Immature Gran % (Auto) 0.4 (0.0-0.4) % Neut % (Auto) 74.0 H (45-73) % Lymph % (Auto) 16.0 L (20-40) % Wilkes % (Auto) 7.5 (2-11) % Eos % (Auto) 1.7 (0-4) % Baso % (Auto) 0.4 (0-2) % Lymph # (Auto) 1.4 (1.2-4.9) X10*3/uL Wilkes # (Auto) 0.7 (0.1-1.2) X10*3/uL Eos # (Auto) 0.2 (0.0-0.4) X10*3/uL Baso # (Auto) 0.0 (0.0-0.2) X10*3/uL Abs Immat Gran (auto) 0.04 H (0.00-0.03) X10*3/uL Absolute Neuts (auto) 6.6 (2.0-8.3) x10*3/uL Absolute Nucleated RBC 0.000 (0.0-0.012) X10*3/uL Nucleated RBC % (auto) 0.0 (0.0-0.2) /100WBC Sodium 142 (135-145) mmol/L Potassium 4.4 (3.3-5.1) mmol/L Chloride 108 (96-108) mmol/L Carbon Dioxide 27 (22-29) mmol/L Anion Gap 11 L (12-20) BUN 13 (9-16) mg/dL Creatinine 1.23 (0.5-1.4) mg/dL Estim Creat Clear Calc 84.1 Estimated GFR > 60 Random Glucose 87 (60-115) mg/dL Calcium 9.6 (8.4-10.2) mg/dL Urine Color Yellow Urine Appearance Cloudy Urine pH 6.5 (5.0-9.0) Ur Specific [place] 1.020 (1.005-1.025) Urine Protein Negative (Neg-Trace) mg/dL Urine Glucose (UA) Negative (Negative) mg/dL Urine Ketones Trace (Negative) mg/dL Urine Blood Small (1+) H (Negative) Urine Nitrite Negative (Negative) Ur Leukocyte Esterase Negative (Negative) Urine RBC 11-20 H (0-2) /HPF Urine WBC 0-5 (0-5) /HPF Ur Squamous Epith Cells 0-2 (0-2) /HPF Urine Bacteria None Seen (None Seen) Hyaline Casts 0-2 (0-2) /LPF Radiology Impression Discussion of test interpretation with radiology: I have reviewed the radiologist's reading. Independent Historian Clinical information obtained from an independent historian. History obtained from or confirmed by: Spouse External Record Review External record reviewed: Inpatient record, Office record, Outpatient record, Prior outpatient labs, Prior outpatient radiology, Primary care record and Outside ED record Tests considered The following testing was considered but not selected: As above Prescription Management I considered prescription management with: Pain Medication Chronic Conditions Patient?s care impacted by: Other Social Determinants Patient?s care significantly limited by Social Determinants of Health including: Other Social Determinant of Health Critical Care Time Critical Care Time Critical Care Time: Yes Total Critical Care Time: 40 Attestation: I have personally provided critical care time exclusive of time spent on separately billable procedures. Time includes review of lab data, radiology results, discussion with consultants, and monitoring for potential decompensation. Intervention performed as documented. Discharge Plan Discharge Clinical Impression: Calculus of ureterovesical junction (UVJ), Pneumonia Patient Disposition: Home, Self-Care Instructions: Pneumonia (ED), Ureteral Stones (ED) Additional Instructions: You have a kidney stone as well as pneumonia Please take prescribed antibiotics until completion Naproxen as an anti-inflammatory pain medication, take with food Flomax will help dilate the ureter to help pass the stone Morphine as an opiate pain medication, take only when pain is severe for the next 3 days You need to follow up with Urology as was your primary care doctor If symptoms persist or worsens/pain is unbearable, you develop fever, persistent nausea/vomiting return to the emergency department Prescriptions: New amoxicillin 500 mg tablet 1,000 mg PO TID 7 Days Qty: 42 0RF azithromycin 250 mg tablet See Rx Instructions .ROUTE .COMPLEX Qty: 6 0RF Rx Instructions: take 500 mg today (day 1), then 250 mg for 4 days (days 2-5) acetaminophen [Tylenol Extra Strength] 500 mg tablet 500 mg PO Q6H PRN (Reason: fever or pain) Qty: 14 0RF tamsulosin [Flomax] 0.4 mg capsule 0.4 mg PO DAILY Qty: 14 0RF morphine 15 mg tablet 15 mg PO Q6H PRN (Reason: pain (scale score 7-10)) 3 Days Qty: 9 0RF Rx Instructions: Partial Fill upon patient request. naproxen 500 mg tablet 500 mg PO BID PRN (Reason: pain) 10 Days Qty: 20 0RF No Action ibuprofen 600 mg tablet 600 mg PO Q8H PRN (Reason: pain) Qty: 20 0RF Referrals: [facility] [Provider Group, Urology] - 1 week Print Language: Anguillan
[2025-04-30 09:58] LABS: Appearance Urine Cloudy; Glucose Urine UA Negative (Negative); PH 6.5 (5.0-9.0); Specific Gravity - Urine 1.020 (1.005-1.025); UMIC TRIGGER UACC YES
[2025-04-30 09:59] LABS: Anion Gap 11 (12-20); Blood Urea Nitrogen 13 mg/dL (9-16); Calcium 9.6 mg/dL (8.4-10.2); Carbon Dioxide 27 mmol/L (22-29); Chloride 108 mmol/L (96-108); Creatinine Clr Calc Pharmacy 84.1; Estimated Glomerular Filt Rate > 60; Potassium 4.4 mmol/L (3.3-5.1); Sodium 142 mmol/L (135-145)
[2025-04-30 10:06] VITALS: BP 147/101
[2025-04-30 11:42] VITALS: BP 142/101; PULSE 80; RESP 20; TEMP 36.8; O2SAT 96
--- NOTE | 2025-04-30 11:53 | PC.NURSE ---
Pt still pacing r/t pain. Pain improved only slightly with morphine, flexeril and toradol
[2025-04-30 13:52] VITALS: BP 125/68; PULSE 74; RESP 14; TEMP 36.7; O2SAT 96
[2025-04-30 15:32] VITALS: BP 125/68; PULSE 74; RESP 14; TEMP 36.7; O2SAT 96
== END 2025-04-30 15:34 | disposition home or self-care (01) ==
PROVIDERS: Physician Assistant; Emergency Provider Emergency Medicine Emergency Medical Services
DX: N20.1 Calculus of ureter (principal); J18.9 Pneumonia, unspecified organism; R05.9 Cough, unspecified; R11.0 Nausea; M54.50 Low back pain, unspecified
CPT/HCPCS: 36415; 71046; 74176; 76775; 80048; 81001; 85025; 96361; 96365; 96375; 96376; 99284; J0131; J1885; J2270

== ENCOUNTER → 2025-04-30 10:21 | Outpatient (BNV) | payer OTHER, SELFPAY | PROVIDERS: Emergency Provider Emergency Medicine Emergency Medical Services; Visit Provider Radiology Diagnostic Ultrasound | DX: N13.2 Hydronephrosis with renal and ureteral calculous obstruction (principal); R10.A2 Flank pain, left side; J18.1 Lobar pneumonia, unspecified organism | CPT/HCPCS: 71046; 74176; 76775 ==

== ENCOUNTER 2025-05-10 20:02 | Emergency (ER) | payer SELFPAY ==
--- NOTE | ~2025-05-10 | XR_ITS ---
CLINICAL HISTORY: cough recent pneumonia 2 view chest x-ray Comparison: CR/SR - XR CHEST 2 VIEWS - 04/30/25 13:38 EDT Findings: No consolidation or effusion. Heart size is normal. No acute fracture. IMPRESSION: 1. No acute findings. This document has been electronically signed by: Daniel Claudio MD on 05/10/2025 21:28:41
[2025-05-10 20:13] VITALS: BP 168/89; PULSE 110; RESP 18; TEMP 36.7; O2SAT 97; BMI 30.5
--- NOTE | 2025-05-10 20:14 | ED.GENADULT ---
HPI - General Adult General Chief complaint: General Medical Stated complaint: was here last week for amomnia still not better Time Seen by Provider: 05/10/25 21:19 Source: patient, family, old records reviewed and envelope addresser Mode of arrival: ambulatory Limitations: no limitations History of Present Illness ED Provider: Dr. Suly Millard HPI narrative: 39-year-old male with history of asthma presenting with chills, continued cough after being diagnosed with pneumonia and kidney stones last week. He was prescribed a course of antibiotics but feels that his symptoms have improved much. He has no issues with kidney stones. Feels as though he passed the stone that he had last week. His main concern is his continued cough and chills. No measured fever but has felt warm at home. Cough is productive of clear sputum. No reported vomiting or diarrhea. Has a hard time sleeping due to this cough. Chest pain is bilateral and along the lower aspect of his ribs. Related Data Previous Rx's ?Medication ?Instructions ?Recorded ibuprofen 600 mg tablet 600 mg PO Q8H PRN pain #20 tabs 11/28/22 acetaminophen 500 mg tablet 500 mg PO Q6H PRN fever or pain 04/30/25 (Tylenol Extra Strength) #14 tabs amoxicillin 500 mg tablet 1,000 mg (2 x 500 mg) PO TID 7 04/30/25 days #42 tabs azithromycin 250 mg tablet See Rx Instructions PO .COMPLEX #6 04/30/25 tabs morphine 15 mg immediate release 15 mg PO Q6H PRN pain (scale score 04/30/25 tablet 7-10) 3 days #9 tabs naproxen 500 mg tablet 500 mg PO BID PRN pain 10 days #20 04/30/25 tabs tamsulosin 0.4 mg capsule (Flomax) 0.4 mg PO DAILY #14 caps 04/30/25 albuterol sulfate 90 mcg/actuation 2 inh inhalation Q4H PRN shortness 05/11/25 breath activated powder inhaler of breath #1 ea cefuroxime axetil 250 mg tablet 250 mg PO Q12H 7 days #14 tabs 05/11/25 codeine 10 mg-guaifenesin 100 mg/5 5 ml PO Q6H PRN cough #118 mL 05/11/25 mL oral liquid (G Tussin AC) doxycycline monohydrate 100 mg 100 mg PO BID 7 days #14 caps 05/11/25 capsule prednisone 50 mg tablet 50 mg PO DAILY 5 days #5 tabs 05/11/25 Allergies Allergy/AdvReac Type Severity Reaction Status Date / Time No Known Allergies Allergy Verified 05/10/25 20:16 Review of Systems Review of Systems: as per HPI, full review of systems performed and negative but for the above mentioned pertinent positives and negatives. [facility] Past Medical History Medical History Esophageal stricture Surgical History H/O clavicle fracture Esophageal stricture Social History Social History Alcohol intake: never Patient Tobacco Use Status: Never used Tobacco Smoked in Last 30 Days: No Advance Directives: No Advance Directives Information Provided: Yes Do you have a plan to hurt others: No Plan Current occupational status: unemployed Physical Exam ED Exam Exam: GENERAL: Ill-Appearing, appears uncomfortable. SKIN: Normal skin color for ethnicity, warm, dry, no rashes noted. HEENT:? Normocephalic, atraumatic, no stridor, dry mucous membranes, dentition intact, EOMI. NECK: Soft, supple, full ROM, midline structures nontender, no step-offs, no deformities, no lymphadenopathy. CHEST: Heart regular tachycardia, no murmurs, symmetric chest rise and fall. PULMONARY: Clear to auscultation bilaterally, diminished at the bases, no labored breathing, no wheezes/rhales/rhonchi, occasional bronchospastic cough. ABDOMINAL: Soft, nondistended, nontender, positive bowel sounds in all quadrants. : Deferred. MUSCULOSKELETAL: Normal tone, full range of motion, no deformities, no peripheral edema. NEURO: Alert and oriented x3, CN II through XII intact, equal strength and sensation bilateral upper and lower extremities, no focal neurologic deficits.? PSYCHIATRIC: Flat affect, fluid speech, good eye contact and appropriate demeanor. Vital Signs: Vital Signs - 24 hr 05/10/25 20:13 05/10/25 21:06 05/10/25 22:48 Temperature 98.1 F 98.4 F Pulse Rate 110 H 105 H 90 Respiratory Rate 18 16 18 Blood Pressure 168/89 H 151/93 H Pulse Oximetry 97 96 Oxygen Delivery Method Room Air Room Air BMI result Body Mass Index 30.5 Course Course Course Narrative: RME: 39-year-old male presented hospital today for evaluation of persistent cough, fever and chills. Recently seen on 04/30 for left-sided kidney stone and right lobe pneumonia. Patient was discharged with tamsulosin, amoxicillin and azithromycin for antibiotic coverage and morphine p.o. tablets. Patient is returning due to persistent cough and fever and chills. Medications Administered Discontinued Medications Generic Name Dose Route Start Last Admin Trade Name Freq PRN Reason Stop Dose Admin Albuterol/Ipratropium 3 ml 05/10/25 22:38 05/10/25 22:46 Albuterol/Iprat 2.5/0.5mg 3 Ml Ampul.Neb INHALE 05/10/25 22:39 3 ml ONCE ONE Administration Cefuroxime Axetil 500 mg 05/10/25 22:25 05/10/25 22:36 Cefuroxime Axetil 500 Mg Tablet PO 05/10/25 22:26 500 mg ONCE ONE Administration Doxycycline Monohydrate 100 mg 05/10/25 22:25 05/10/25 22:36 Doxycycline Monohydrate 100 Mg Capsule PO 05/10/25 22:26 100 mg ONCE ONE Administration Guaifenesin/Codeine Phosphate 10 ml 05/10/25 22:27 05/10/25 22:35 Guaifen/Codeine Sf 200/20/10ml 10 Ml Liquid PO 05/10/25 22:28 10 ml ONCE ONE Administration Prednisone 50 mg 05/10/25 22:25 05/10/25 22:35 Prednisone 10 Mg Tablet PO 05/10/25 22:26 50 mg ONCE ONE Administration Medical Decision Making Medical Decision Making [facility] Narrative: Patient presents today with chief complaint of shortness of breath. Differential diagnosis includes, but is not limited to, upper respiratory infection, pneumonia, COPD exacerbation, asthma exacerbation, CHF, pneumothorax, pleural effusion, pulmonary embolism, ACS. Broad-based work-up will be initiated to evaluate for etiology of patient's symptoms. Clinical picture is most consistent with bronchitis and bronchospasm. I discussed this with the patient and his at length. He has a very tight cough and I feel could benefit from a course of prednisone. Chest x-ray is clear showing no further infiltrates. He has normal blood work. Urine is clean. He passed his kidney stone. Stable for discharge and outpatient follow-up. Discharged home stable condition. Differential Diagnosis Differential Diagnoses: The differential diagnosis associated with the presentation includes (as above) Admission/Observation Consideration of admission/observation: Escalation of care including admission/observation considered Lab Data MDM Lab Attestation statement: I reviewed the patient's lab results. 05/10/25 20:32 05/10/25 20:32 Labs: Lab Results 05/10/25 05/10/25 Range/Units 20:32 22:42 WBC 7.7 (4.8-10.8) X10*3/uL RBC 4.28 L (4.60-5.80) X10*6/uL Hgb 12.8 L (14.0-18.0) g/dl Hct 36.8 L (42.0-52.0) % MCV 86.0 (80.0-98.0) fL MCH 29.9 (27.0-33.0) pg MCHC 34.8 (31.0-36.0) g/dl RDW 12.1 (11.0-16.0) % Plt Count 266 (160-400) X10*3/uL MPV 9.0 L (9.4-12.4) fL Immature Gran % (Auto) 0.3 (0.0-0.4) % Neut % (Auto) 67.0 (45-73) % Lymph % (Auto) 21.1 (20-40) % [place] % (Auto) 8.8 (2-11) % Eos % (Auto) 2.5 (0-4) % Baso % (Auto) 0.3 (0-2) % Lymph # (Auto) 1.6 (1.2-4.9) X10*3/uL [place] # (Auto) 0.7 (0.1-1.2) X10*3/uL Eos # (Auto) 0.2 (0.0-0.4) X10*3/uL Baso # (Auto) 0.0 (0.0-0.2) X10*3/uL Abs Immat Gran (auto) 0.02 (0.00-0.03) X10*3/uL Absolute Neuts (auto) 5.2 (2.0-8.3) x10*3/uL Absolute Nucleated RBC 0.000 (0.0-0.012) X10*3/uL Nucleated RBC % (auto) 0.0 (0.0-0.2) /100WBC Sodium 141 (135-145) mmol/L Potassium 3.5 D (3.3-5.1) mmol/L Chloride 105 (96-108) mmol/L Carbon Dioxide 27 (22-29) mmol/L Anion Gap 13 (12-20) BUN 11 (9-16) mg/dL Creatinine 1.01 (0.5-1.4) mg/dL Estim Creat Clear Calc 105.4 Estimated GFR > 60 Random Glucose 92 (60-115) mg/dL Lactic Acid 1.6 (0.5-2.0) mmol/L Calcium 9.1 (8.4-10.2) mg/dL Magnesium 1.7 (1.6-2.6) mg/dL Total Bilirubin 0.3 (0.0-1.0) mg/dL AST 21 (5-37) U/L ALT 34 (0-40) U/L Alkaline Phosphatase 81 (39-117) U/L Total Protein 7.1 (6.5-8.0) g/dL Albumin 4.1 (3.5-5.0) g/dL Urine Color Yellow Urine Appearance Cloudy Urine pH 8.5 (5.0-9.0) Ur Specific [place] 1.020 (1.005-1.025) Urine Protein Negative (Neg-Trace) mg/dL Urine Glucose (UA) Negative (Negative) mg/dL Urine Ketones Negative (Negative) mg/dL Urine Blood Negative (Negative) Urine Nitrite Negative (Negative) Ur Leukocyte Esterase Negative (Negative) COVID-19 (REYNA) Negative (Negative) COVID-19 Clin Com See Note Influenza Type A (DARON) Negative (Negative) Influenza Type B (DARON) Negative (Negative) Influenza A & B Note See Note Independent Interpretation I performed an independent interpretation of an: Plain X-Ray Interpretation: My independent interpretation of the chest x-ray reveals no consolidations, pulmonary edema, pleural effusion, pneumothorax, obvious bony abnormalities. Radiology Impression Discussion of test interpretation with radiology: I have reviewed the radiologist's reading. Independent Historian Clinical information obtained from an independent historian. History obtained from or confirmed by: Spouse External Record Review External record reviewed: Inpatient record Prescription Management I considered prescription management with: Other (steroids, cough syrup, albuterol) Discharge Plan Discharge Clinical Impression: Community acquired pneumonia, Cough due to bronchospasm Patient Disposition: Home, Self-Care Additional Instructions: Please take all of your antibiotics as prescribed until the course is completed. Do not stop this medication early if you start to feel better. Use codeine cough syrup as needed for severe coughing but do not take this medication if you are driving. Otherwise, please use your inhaler as needed if you have a coughing fit. This will help open up your lungs and deliver oxygen easier. Return to the ER with any new or worsening symptoms including: Worsening shortness of breath, continued fevers despite medications, passing out, chest pain, any new symptom that concerns you. Call 911 with any medical emergency. Prescriptions: New cefuroxime axetil 250 mg tablet 250 mg PO Q12H 7 Days Qty: 14 0RF doxycycline monohydrate 100 mg capsule 100 mg PO BID 7 Days Qty: 14 0RF prednisone 50 mg tablet 50 mg PO DAILY 5 Days Qty: 5 0RF codeine-guaifenesin [G Tussin AC] 10-100 mg/5 mL liquid 5 ml PO Q6H PRN (Reason: cough) Qty: 118 0RF albuterol sulfate 90 mcg/actuation aerosol powdr breath activated 2 inh inhalation Q4H PRN (Reason: shortness of breath) Qty: 1 0RF No Action ibuprofen 600 mg tablet 600 mg PO Q8H PRN (Reason: pain) Qty: 20 0RF amoxicillin 500 mg tablet 1,000 mg PO TID 7 Days Qty: 42 0RF azithromycin 250 mg tablet See Rx Instructions .ROUTE .COMPLEX Qty: 6 0RF Rx Instructions: take 500 mg today (day 1), then 250 mg for 4 days (days 2-5) acetaminophen [Tylenol Extra Strength] 500 mg tablet 500 mg PO Q6H PRN (Reason: fever or pain) Qty: 14 0RF tamsulosin [Flomax] 0.4 mg capsule 0.4 mg PO DAILY Qty: 14 0RF morphine 15 mg tablet 15 mg PO Q6H PRN (Reason: pain (scale score 7-10)) 3 Days Qty: 9 0RF Rx Instructions: Partial Fill upon patient request. naproxen 500 mg tablet 500 mg PO BID PRN (Reason: pain) 10 Days Qty: 20 0RF Interventions: ED Discharge Assessment Last Done: 05/11/25 01:21 Discharge Date/Time: 05/11/25 01:24 Print Language: Urdu
[2025-05-10 20:37] LABS: MANUAL DIFF FLAG NO
[2025-05-10 20:39] LABS: Hematocrit 36.8 % (42.0-52.0); Hemoglobin 12.8 g/dl (14.0-18.0); Imm Gran Abs Auto 0.02 X10*3/uL (0.00-0.03); Imm Gran Pct Auto 0.3 % (0.0-0.4); Lymphocytes Absolute Auto 1.6 X10*3/uL (1.2-4.9); Mean Corpuscular HGB Conc 34.8 g/dl (31.0-36.0); Mean Corpuscular Hemoglobin 29.9 pg (27.0-33.0); Mean Corpuscular Volume 86.0 fL (80.0-98.0); NRBC Abs Auto 0.000 X10*3/uL (0.0-0.012); NRBC Pct Auto 0.0 /100WBC (0.0-0.2); Platelet Count 266 X10*3/uL (160-400); Red Blood Count 4.28 X10*6/uL (4.60-5.80); White Blood Count 7.7 X10*3/uL (4.8-10.8)
[2025-05-10 20:53] LABS: Alanine Aminotransferase 34 U/L (0-40); Albumin Level 4.1 g/dL (3.5-5.0); Alkaline Phosphatase 81 U/L (39-117); Anion Gap 13 (12-20); Aspartate Amino Transferase 21 U/L (5-37); Blood Urea Nitrogen 11 mg/dL (9-16); Calcium 9.1 mg/dL (8.4-10.2); Carbon Dioxide 27 mmol/L (22-29); Chloride 105 mmol/L (96-108); Creatinine Clr Calc Pharmacy 105.4; Estimated Glomerular Filt Rate > 60; Magnesium 1.7 mg/dL (1.6-2.6); Potassium 3.5 mmol/L (3.3-5.1); Sodium 141 mmol/L (135-145); Total Protein 7.1 g/dL (6.5-8.0)
[2025-05-10 20:55] LABS: COVID-19 Test Negative (Negative); IDNOW Serial# 55D5AD1C
[2025-05-10 20:56] LABS: IDNOW Serial# 58CA691E; Influenza B2 Negative (Negative)
[2025-05-10 21:06] VITALS: BP 151/93; PULSE 105; RESP 16; TEMP 36.9; O2SAT 96
--- OUTSIDE RECORDS SUMMARY | 2025-05-10 21:20 | XMS_ITS | Patient Health Record ---
Author Organization [facility] Address [address] [place] [address] Care Team Providers Care [place] Upholsterer Name Role Phone Morelia (RETIRED) Joey DIOP Primary Care Provide r Wilfrido Trotter [phone] Reason For Referral No Information Medications Medication [...] Status Risk Notes Problem Stricture of esophagus (18722445) Esophageal obstruction (K22.2) Active confirmed Problem Esophageal stricture (06366564) Esophageal stricture (K22.2) Active confirmed Problem Hiatal hernia (82538175) Hiatal hernia (K44.9) Active confirmed Problem Barium swallow abnormal (738137981) Abnormal barium swallow (R93.3) Active confirmed Problem Esophageal dysphagia (50752167) Esophageal dysphagia (R13.10) Active confirmed Problem Benign esophageal stricture (402792184) Benign esophageal stricture (K22.2) Active confirmed Plan [...] Insured Coverage Start Date Coverage End Date [facility] [address] [place] [address] [id number] FIDEL POWELL Self - patient is the insured Medical (General) History Medical History History ICD Code Asthma Denies [place],DM,CVA,renal disease Esophageal stricture--he und erwent an upper [...]
--- NOTE | 2025-05-10 21:34 | PC.NURSE ---
pt reports having cough and pneumonia and being given a 10 day RX for antibiotics which pt states he finished today. Pt reports fever at home, 98.2 here in ED. Reports continued cough with abdominal pain due to coughing and his hands and feet intermittently pale when he starts to cough. sp02 at 96% on room air, respirations even and unlabored. pt noted to have a dry cough while this RN was in room.
[2025-05-10] MEDS: guaiFEN/Codeine SF 200/20/10ML 10 ML LIQUID PO (22:35)
--- NOTE | 2025-05-10 22:45 | PC.NURSE ---
2nd set of cultures drawn and sent down, UA sent down. Pt medicated per SEP.
[2025-05-10] MEDS: Albuterol/Iprat 2.5/0.5MG 3 ML AMPUL.NEB INHALE (22:46)
[2025-05-10 22:48] VITALS: PULSE 90; RESP 18; O2SAT 97
[2025-05-10 22:49] LABS: Appearance Urine Cloudy; Glucose Urine UA Negative (Negative); PH 8.5 (5.0-9.0); Specific Gravity - Urine 1.020 (1.005-1.025)
[2025-05-11 01:21] VITALS: BP 136/82; PULSE 78; RESP 18; TEMP 36.8; O2SAT 97
== END 2025-05-11 01:24 | disposition home or self-care (01) ==
PROVIDERS: Student in an Organized Health Care Education/Training Program; Emergency Provider Emergency Medicine
DX: J18.9 Pneumonia, unspecified organism (principal); R05.9 Cough, unspecified; J98.01 Acute bronchospasm; Z87.442 Personal history of urinary calculi
CPT/HCPCS: 36415; 71046; 80053; 81003; 83605; 83735; 85025; 87040; 87502; 87635; 94640; 99284

== ENCOUNTER → 2025-05-10 20:35 | Outpatient (BNV) | payer SELFPAY | PROVIDERS: Emergency Provider Emergency Medicine; Visit Provider Radiology Diagnostic Radiology | DX: R05.9 Cough, unspecified (principal) | CPT/HCPCS: 71046 ==